=== PATIENT | male | born 1995 | race Caucasian/White ===

== ENCOUNTER 2025-08-31 01:18 | Inpatient (IN) | payer BC ==
[~2025-08-31] VITALS: Ht 180.3 cm; Wt 64.0 kg
[2025-08-31 01:20] VITALS: O2SAT 98
[2025-08-31] MEDS: SODIUM CHLORIDE 0.9% 1,000 ML IV ONE (01:54)
[2025-08-31 02:05] LABS: BASOPHILS % 0.6 % (0.0-2.0); EOSINOPHILS % 0.4 % (0.0-5.0); HEMATOCRIT. 39.3 % (42.0-52.0); HEMOGLOBIN. 13.1 g/dL (14.0-18.0); LYMPHOCYTES % 11.9 % (20.0-50.0); MEAN PLATELET VOLUME 7.8 fl (7.4-10.4); MONOCYTES % 6.0 % (2.0-8.0); NEUTROPHILS % 81.1 % (40.0-76.0); PLATELET 382 x1000/uL (130-400); RED BLOOD CELL COUNT 4.38 mill/uL (4.7-6.1); RED CELL DISTRIBUTION WIDTH 15.0 % (11.6-14.6)
[2025-08-31 02:24] LABS: CREATININE 0.5 mg/dL (0.6-1.3)
[2025-08-31] MEDS: ONDANSETRON HCL 4MG/2ML INJ IV ONE (02:24)
[2025-08-31 02:25] LABS: TROPONIN I HIGH SENSITIVITY < 4 ng/L (3.0-53); UREA NITROGEN BLOOD 6 mg/dL (9-23)
[2025-08-31] MEDS: KETOROLAC 15MG/ML VIAL IV ONE (02:25)
[2025-08-31 02:26] LABS: ASPARTATE AMINOTRANSFERASE 18 IU/L (<34)
[2025-08-31 02:27] LABS: BILIRUBIN DIRECT 0.2 mg/dL (<=3.0); BILIRUBIN TOTAL 0.6 mg/dL (0.1-1.0); PROTEIN TOTAL 7.5 g/dL (6.0-8.3)
[2025-08-31] MEDS: METOCLOPRAMIDE HCL 10MG/2ML VIAL IV ONE (03:57)
[2025-08-31] MEDS: LORAZEPAM 2MG/ML UD SYRINGE IV NR (04:23)
[2025-08-31 07:52] VITALS: BP 155/100; PULSE 102; RESP 16; TEMP 37.0296
[2025-08-31 08:00] VITALS: BP 172/65; PULSE 88; RESP 16; TEMP 37; O2SAT 99
[2025-08-31] MEDS: ASPIRIN 81MG TABLET PO SCH (09:00)
[2025-08-31] MEDS ORDERED: NALOXONE HCL 0.4MG/ML VIAL IV PRN (09:00)
[2025-08-31] MEDS: HYDROCODONE/ACETAMINOPHEN 5/325MG TABLET PO PRN (09:14)
[2025-08-31 12:00] VITALS: BP 174/90; PULSE 80; RESP 18; TEMP 37; O2SAT 99
[2025-08-31] MEDS: ONDANSETRON HCL 4MG/2ML INJ IV PRN (12:09)
[2025-08-31 15:28] LABS: LDL CHOLESTEROL 86.0 mg/dL (5-100); TRIGLYCERIDE 63.0 mg/dL (0-150)
[2025-08-31 15:32] LABS: T4 FREE 1.26 ng/dL (0.89-1.76)
[2025-08-31 16:00] VITALS: BP 172/80; PULSE 80; RESP 16; TEMP 37; O2SAT 99
[2025-08-31] MEDS: LORAZEPAM 2MG/ML UD SYRINGE IV PRN (17:06)
[2025-08-31 20:00] VITALS: BP 161/94; PULSE 69; RESP 18; TEMP 35.9; O2SAT 96
[2025-08-31] MEDS: ATORVASTATIN CALCIUM 40MG TABLET PO SCH (21:00)
[2025-09-01] VITALS: BP 162/95; PULSE 88; RESP 18; TEMP 36.3; O2SAT 99
[2025-09-01 04:00] VITALS: BP 179/100; PULSE 96; RESP 17; TEMP 36.1; O2SAT 96
[2025-09-01 08:00] VITALS: BP 166/100; PULSE 98; RESP 16; TEMP 36.5; O2SAT 99
[2025-09-01] MEDS ORDERED: NIFE-32 MT (10:05)
[2025-09-01] MEDS: NIFEDIPINE XL 60MG TAB PO SCH (11:08)
[2025-09-01 12:00] VITALS: BP 176/98; PULSE 78; RESP 16; TEMP 37.9; O2SAT 98
[2025-09-01] MEDS ORDERED: CEFTRIAXONE 1GM/50ML 50 ML IV SCH ×2 (13:45→14:00)
[2025-09-01] MEDS: LEVOFLOXACIN 250MG TABLET PO SCH (15:11)
[2025-09-01 16:00] VITALS: BP 176/98; PULSE 108; RESP 17; TEMP 38.2; O2SAT 98
[2025-09-01] MEDS: METOPROLOL TARTRATE 50MG TABLET PO SCH (17:08)
[2025-09-01 20:00] VITALS: BP 141/73; PULSE 81; RESP 18; TEMP 36.1; O2SAT 97
[2025-09-02] VITALS: BP 159/105; PULSE 76; RESP 20; TEMP 36.6; O2SAT 98
[2025-09-02 04:00] VITALS: BP 186/105; PULSE 70; RESP 18; TEMP 37.5; O2SAT 97
[2025-09-02] MEDS: CLONIDINE 0.1MG TABLET PO PRN (05:57)
[2025-09-02 08:00] VITALS: BP_SYST 161; BP_DIAS 106; BP_DIAS 161; PULSE 77; RESP 17; TEMP 36; O2SAT 99
[2025-09-02 08:58] LABS: CREATININE 0.5 mg/dL (0.6-1.3); UREA NITROGEN BLOOD 18 mg/dL (9-23)
[2025-09-02 09:00] LABS: BASOPHILS % 0.1 % (0.0-2.0); EOSINOPHILS % 0.0 % (0.0-5.0); HEMATOCRIT. 41.3 % (42.0-52.0); HEMOGLOBIN. 14.1 g/dL (14.0-18.0); LYMPHOCYTES % 10.5 % (20.0-50.0); MEAN PLATELET VOLUME 8.0 fl (7.4-10.4); MONOCYTES % 7.1 % (2.0-8.0); NEUTROPHILS % 82.3 % (40.0-76.0); PLATELET 373 x1000/uL (130-400); RED BLOOD CELL COUNT 4.67 mill/uL (4.7-6.1); RED CELL DISTRIBUTION WIDTH 14.4 % (11.6-14.6)
[2025-09-02] MEDS ORDERED: AMLODIPINE 10MG TABLET PO SCH (09:00)
[2025-09-02] MEDS: POTASSIUM CHLORIDE 20MEQ TABLET SR PO SCH (10:48)
[2025-09-02] MEDS: KCL 20MEQ/100ML PREMIX 100 ML IV SCH (11:15)
[2025-09-02 12:00] VITALS: BP 151/94; PULSE 74; RESP 17; TEMP 37.3; O2SAT 99
[2025-09-02 16:00] VITALS: BP 163/95; PULSE 78; RESP 18; TEMP 35.9; O2SAT 99
[2025-09-02 18:42] LABS: CLARITY URINE TURBID (CLEAR); COLOR URINE YELLOW (YELLOW); GLUCOSE URINE NEGATIVE (NEGATIVE); KETONES URINE 1+ (NEGATIVE); LEUKOCYTE ESTERASE URINE NEGATIVE (NEGATIVE); NITRITE URINE NEGATIVE (NEGATIVE); OCCULT BLOOD URINE NEGATIVE (NEGATIVE); PH URINE 8.0 (4.5-8.0); PROTEIN URINE TRACE (NEGATIVE); SPECIFIC GRAVITY URINE 1.018 (1.005-1.030); UROBILINOGEN URINE 1.0 E.U./dL (0.2-1.0)
[2025-09-02 18:53] LABS: *AMPHETAMINES SCREEN URINE NEGATIVE (NEGATIVE); *BARBITURATES SCREEN URINE NEGATIVE (NEGATIVE); *BENZODIAZEPINES SCREEN URINE NEGATIVE (NEGATIVE); *COCAINE SCREEN URINE PRESUMPTIVE POSITIVE (NEGATIVE)
[2025-09-02 18:54] LABS: CANNABINOID URINE SCREEN NEGATIVE (NEGATIVE); ECSTASY MDMA SCREEN URINE NEGATIVE (NEGATIVE); METHADONE URINE SCREEN NEGATIVE (NEGATIVE); OPIATES URINE SCREEN PRESUMPTIVE POSITIVE (NEGATIVE); PHENCYCLIDINE URINE SCREEN NEGATIVE (NEGATIVE)
[2025-09-02 19:41] LABS: BACTERIA URINE TRACE; RBC URINE 0-2 /hpf (0-2); SQUAMOUS EPITHELIAL CELL URINE 1+ /lpf (RARE/1+); WBC URINE 0-2 /hpf (0-2)
[2025-09-03 04:00] VITALS: BP 155/95; PULSE 68; RESP 17; TEMP 36.5; O2SAT 100
[2025-09-03 08:00] VITALS: BP 151/99; PULSE 77; RESP 19; TEMP 36.7; O2SAT 100
[2025-09-03] MEDS ORDERED: LORAZEPAM 1MG TABLET PO PRN (12:00)
[2025-09-03] MEDS ORDERED: CARVEDILOL 6.25 MG TABLET PO SCH (21:00)
== END 2025-09-03 13:04 | disposition left against medical advice (07) | DRG 918 ==
LOC: ER 01:27 → EDBEDREQ 03:30 → 5WST 04:54 → EDBEDREQ 05:25 → EDBEDREQSVC 05:25 → EDBEDREQTM 05:25 → ENRESERV 05:50 → 6EST 09-02 07:45
PROVIDERS: ADMIT Internal Medicine; ATTEND Internal Medicine
DX: T50.991A Poisoning by other drugs, medicaments and biological substances, accidental (unintentional), initial encounter (principal); I16.0 Hypertensive urgency; Z59.00 Homelessness unspecified; I10 Essential (primary) hypertension; Z53.29 Procedure and treatment not carried out because of patient's decision for other reasons; F14.90 Cocaine use, unspecified, uncomplicated; F17.210 Nicotine dependence, cigarettes, uncomplicated; F11.90 Opioid use, unspecified, uncomplicated; Z88.0 Allergy status to penicillin; Y92.89 Other specified places as the place of occurrence of the external cause
CPT/HCPCS: 36415; 71045; 80048; 80061; 80076; 80305; 81003; 83036; 83735; 84145; 84439; 84443; 84484; 85025; 93005; 96361; 96374; 96375; 99285; J1885; J2060; J2312; J2405; J2765; J3480; J7030